=== PATIENT | female | born 1950 | race African-American/Black ===

== ENCOUNTER 2021-04-21 08:15 | Emergency (ER) | payer OTHER ==
[2021-04-21] MEDS ORDERED: SODIUM BICARBONATE 8.4 % INJ 50ML VIAL IV ONE (08:16)
[2021-04-21] MEDS ORDERED: EPINEPHrine HCL 1 MG/10 ML SYRG IV ONE (08:16)
[2021-04-21] MEDS ORDERED: CALCIUM CHL(10%) 100MG/ML 10ML VIAL IV ONE (08:16)
[2021-04-21 08:23] VITALS: BP 0/0
[2021-04-21] MEDS ORDERED: EPINEPHrine HCL 1 MG/10 ML SYRG ONE ×2 (08:30)
[2021-04-21 08:50] LABS: Basophils # (auto) 0 10 ^3/uL (0-0.2); Eosinophils # (auto) 0.2 10 ^3/uL (0-0.8); Hemoglobin 8.7 g/dL (12.2-16.2); Lymphocytes # (auto) 2.3 10 ^3/uL (0.4-5.4); Monocytes # (auto) 0.3 10 ^3/uL (0-1.3); Red Blood Cells 3.02 10^6/uL (4.0-5.20)
[2021-04-21 08:52] LABS: Basophils % (auto) 0.4 % (0.0-2.0); Eosinophils % (auto) 3.5 % (0.0-7.0); Hematocrit 30.5 % (36.0-46.0); Lymphocytes % (auto) 34.8 % (10.0-50.0); Mean Corpuscular Hemoglobin 28.8 pg (28.0-32.0); Mean Corpuscular Hgb Conc. 28.5 g/dL (32.0-36.0); Monocytes % (auto) 4.6 % (0.0-12.0); Neutrophils # (auto) 3.8 10 ^3/uL (1.6-8.6); Neutrophils % (auto) 56.7 % (37.0-80.0); Nucleated Red Blood Cells % 0.4 %; Red Cell Distribution Width 17.6 % (11.8-14.3); White Blood Cell 6.6 10^3/uL (4.4-10.8)
[2021-04-21 09:07] LABS: Albumin 2.5 g/dL (3.4-5.0); Calcium 11.4 mg/dL (8.5-10.1); Potassium 5.2 mmol/L (3.5-5.1)
[2021-04-21 09:12] LABS: BUN/Creatinine Ratio 18.9; Bilirubin, Total 0.2 mg/dL (0.2-1.0); Total Protein 5.7 g/dL (6.4-8.2)
== END 2021-04-21 10:08 ==
LOC: EDBD 08:15 → ER 08:15
DX: I46.9 Cardiac arrest, cause unspecified (principal); I48.91 Unspecified atrial fibrillation; E11.65 Type 2 diabetes mellitus with hyperglycemia; I21.09 ST elevation (STEMI) myocardial infarction involving other coronary artery of anterior wall; D63.8 Anemia in other chronic diseases classified elsewhere; R41.82 Altered mental status, unspecified; R06.89 Other abnormalities of breathing; E43 Unspecified severe protein-calorie malnutrition; I10 Essential (primary) hypertension; Z68.1 Body mass index [BMI] 19.9 or less, adult
CPT/HCPCS: 31500; 36415; 36600; 80053; 82805; 84484; 85025; 92950; 93005; 99285; J0171